=== PATIENT | female | born 1990 | race African-American/Black ===

== ENCOUNTER 2019-02-09 21:47 | Emergency (ER) | payer SELFPAY ==
[~2019-02-09] VITALS: Ht 170.2 cm; Wt 102.0 kg
[2019-02-10] MEDS ORDERED: IBUPROFEN 600 MG TABLET PO ONE
[2019-02-10 00:41] VITALS: BP 122/82
== END 2019-02-10 00:44 | disposition home or self-care (01) ==
LOC: EMS 21:49
DX: S63.690A Other sprain of right index finger, initial encounter (principal); S60.021A Contusion of right index finger without damage to nail, initial encounter; W23.0XXA Caught, crushed, jammed, or pinched between moving objects, initial encounter; Y93.89 Activity, other specified; Y92.098 Other place in other non-institutional residence as the place of occurrence of the external cause; Y99.8 Other external cause status